=== PATIENT | female | born 1990 | race African-American/Black ===

== ENCOUNTER 2018-03-10 19:35 | Inpatient (IN) ==
[~2018-03-10 19:35] MED LIST: Lidocaine PF 1% Inj 5 ML Syringe INFILTRATN ONE; Phenylephrine/NS 1000 MCG/10ML Syringe IV.PUSH ONE; Succinylcholine Inj 100 MG/5 ML Syringe IV.PUSH ONE
[2018-03-10] MEDS ORDERED: Tetanus/Diphtheria Toxoid Adult Vaccine Inj 0.5 ML Vial IM ONE (20:38)
[2018-03-10] MEDS ORDERED: Sod Chloride 0.9% Inj 1,000 ML IV.SIG ONE (20:38)
[2018-03-10] MEDS ORDERED: Ampicillin/Sulbactam Inj 1,500 MG in Sodium Chloride 0.9% Inj 100 ML IV.SIG ONE (20:54)
[2018-03-10 21:05] LABS: Baso # (Auto) 0.1 th/mm3 (0.0-0.2); Baso % (Auto) 0.8 % (0.0-2.0); Eos % (Auto) 0.3 % (0.0-4.0); Hematocrit 41.4 % (35.0-46.0); Hemoglobin 13.8 gm/dL (11.6-15.3); Lymph # (Auto) 1.9 th/mm3 (1.0-4.8); Lymph % (Auto) 15.1 % (9.0-44.0); Mean Corpuscular HGB Conc 33.4 % (32.0-36.0); Mean Corpuscular Hemoglobin 31.4 pg (27.0-34.0); Mean Corpuscular Volume 93.9 fL (80.0-100.0); Mean Platelet Volume 9.3 fL (7.0-11.0); Mono # (Auto) 0.6 th/mm3 (0.0-0.9); Neut # (Auto) 9.7 th/mm3 (1.8-7.7); Neut % (Auto) 78.8 % (16.0-70.0); Platelet Count 236 th/mm3 (150-450); Red Blood Count 4.41 mil/mm3 (4.00-5.30); Red Cell Distribution Width 13.1 % (11.6-17.2); White Blood Count 12.3 th/mm3 (4.0-11.0)
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
--- NOTE | 2018-03-10 21:21 | XR ---
EXAM DATE: 03/10/2018 9:11 PM EDT AGE/SEX: 27 years / Female INDICATIONS: Presurgical. Evaluate for pneumonia or communicable disease. CLINICAL DATA: This is the patient's initial encounter. Patient reports that signs and symptoms have been present for 1 day and indicates a pain score of 0/10. MEDICAL/SURGICAL HISTORY: None. None. COMPARISON: No prior exams available for comparison. FINDINGS: No focal airspace disease or effusion. No pneumothorax. Heart size normal. CONCLUSION: No active disease. Electronically signed by: Albino Paige MD 03/10/2018 9:20 PM EDT
[2018-03-10 21:22] LABS: Calcium 9.2 mg/dL (8.5-10.1); Carbon Dioxide 25.7 meq/L (21.0-32.0); Potassium 3.2 meq/L (3.5-5.1)
--- NOTE | 2018-03-10 21:23 | XR ---
EXAM DATE: 03/10/2018 9:12 PM EDT AGE/SEX: 27 years / Female INDICATIONS: Pain in right foot. Dog bite. CLINICAL DATA: This is the patient's initial encounter. Patient reports that signs and symptoms have been present for 1 day and indicates a pain score of 10/10. MEDICAL/SURGICAL HISTORY: None. None. COMPARISON: No prior exams available for comparison. FINDINGS: There are fractures of the distal third metatarsal and proximal phalanx of the third toe as well as t he proximal phalanx of the second toe. Soft tissue lacerations are noted. Several tiny radiopaque den sities noted in the soft tissues. CONCLUSION: Displaced avulsion fracture distal third metatarsal and proximal phalanx of the third toe. Also fract ure proximal phalanx second toe with several small radiopaque densities in the soft tissues as well a s laceration. Electronically signed by: Albino Paige MD 03/10/2018 9:22 PM EDT
[2018-03-10 22:48] LABS: Activated Partial Thrombo Time 23.8 sec (24.3-30.1); INR 1.1 Ratio; Prothrombin Time 10.9 sec (9.8-11.6)
--- NOTE | 2018-03-10 23:05 | ECG ---
Date Performed: 03/10/2018 Time Performed: 20:52:04 PTAGE: 27 years EKG: Sinus rhythm WITH SINUS ARRHYTHMIA POSSIBLE RIGHT VENTRICULAR CONDUCTION DELAY BORDERLINE ECG NO PREVIOUS TRACING DOCTOR: Simon Lopez Interpretating Date/Time 03/10/2018 23:03:28
[2018-03-10] MEDS ORDERED: Bupivacaine PF 0.25% Inj 30 ML Vial ONE (23:07)
[2018-03-10] MEDS ORDERED: Morphine Sulfate Inj 2 MG/ML Vial IV.PUSH PRN (23:31)
[2018-03-10] MEDS ORDERED: Temazepam 15 MG Capsule PO PRN (23:31)
[2018-03-10] MEDS ORDERED: Bisacodyl 10 MG Supp RECTAL PRN (23:31)
[2018-03-10] MEDS ORDERED: Acetaminophen 325 MG Tablet PO PRN (23:31)
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
[2018-03-10] MEDS ORDERED: Clindamycin Inj 600 MG/4 ML Vial ONE (23:44)
[2018-03-11] MEDS ORDERED: Post-op Orders (for Pharmacy) OTHER STA (01:09)
--- NOTE | 2018-03-11 01:09 | P.PCN ---
Date of procedure: 03/11/18 Pre-op diagnosis: R open foot 3rd metatarsal head fracture, 3rd proximal phalanx fracture Post-op diagnosis: same Procedure: Right foot right foot open reduction internal fixation, K wire fixation of third metatarsal head fracture Laceration repair to dorsal and plantar foot, right foot Anesthesia: WILLIAMA Surgeon: Isi Savage Estimated blood loss (mL): 5 Pathology: other (Soft tissue status post lavage sent for micro, wound culture) Condition: stable Disposition: PACU
[2018-03-11] MEDS ORDERED: fentaNYL Citrate Inj 100 MCG/2 ML Ampul ONE (01:13)
[2018-03-11] MEDS ORDERED: *morphine SULFATE 4 MG/ML PERIprocedure ONLY ONE ×2 (01:14→01:36)
[2018-03-11] MEDS: Sod Chloride 0.9% Inj 1,000 ML IV.CONT SCH ×2 (01:40→14:46)
[2018-03-11] MEDS: Morphine Inj 4 MG/ML Vial IV.PUSH PRN ×6 (03:00→23:02)
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
[2018-03-11 07:41] LABS: Hematocrit 40.9 % (35.0-46.0); Hemoglobin 13.6 gm/dL (11.6-15.3); Mean Corpuscular HGB Conc 33.2 % (32.0-36.0); Mean Corpuscular Hemoglobin 31.4 pg (27.0-34.0); Mean Corpuscular Volume 94.5 fL (80.0-100.0); Mean Platelet Volume 9.6 fL (7.0-11.0); Platelet Count 214 th/mm3 (150-450); Red Blood Count 4.33 mil/mm3 (4.00-5.30); Red Cell Distribution Width 13.5 % (11.6-17.2); White Blood Count 20.7 th/mm3 (4.0-11.0)
[2018-03-11 08:15] LABS: Calcium 8.7 mg/dL (8.5-10.1); Carbon Dioxide 22.1 meq/L (21.0-32.0); Potassium 4.1 meq/L (3.5-5.1)
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
[2018-03-11] MEDS: Senna/Docusate Sodium 8.6/50 MG Tablet PO SCH ×2 (09:46→20:10)
[2018-03-11 10:24] LABS: Lymphocytes 8 % (9-44); Monocytes 7 % (0-8); Platelet Estimate Normal (Normal); Platelet Morphology Normal (Normal)
[2018-03-11] MEDS: Clindamycin 600 mg/NS Premix 600 MG/50 ML PIGGYBACK IV.SIG SCH ×2 (10:26→16:05)
--- NOTE | 2018-03-11 13:22 | P.PNPOD ---
Subjective Interval history: Patient seen bedside. Denies any N,V,F,Ch. States she would like to go home as soon as possible. Patient states her pain is well controlled although it is at about a 7. Review of Systems No: All other systems reviewed negative except as stated in HPI Physical Exam Vital signs: Vital Signs 03/10/18 19:55 03/10/18 22:25 03/11/18 01:07 Temperature 98.3 F 98.6 F Pulse Rate 70 72 104 H Respiratory Rate 20 15 20 Blood Pressure 100/69 110/71 123/63 Pulse Oximetry 100 99 97 03/11/18 01:15 03/11/18 01:30 03/11/18 01:45 Temperature Pulse Rate 89 68 56 L Respiratory Rate 22 12 15 Blood Pressure 158/73 H 134/60 122/72 Pulse Oximetry 100 03/11/18 02:00 03/11/18 02:33 03/11/18 02:50 Temperature 98.5 F 98.0 F Pulse Rate 59 L 54 L Respiratory Rate 23 16 20 Blood Pressure 124/74 129/70 Pulse Oximetry 97 96 03/11/18 03:59 03/11/18 04:38 03/11/18 08:00 Temperature 97.6 F 97.8 F Pulse Rate 54 L 53 L Respiratory Rate 20 16 18 Blood Pressure 119/59 L 156/80 H Pulse Oximetry 98 99 Intake & Output 03/10/18 03/11/18 03/11/18 18:59 06:59 18:59 Intake Total 200 / 200 460 / 460 Output Total 550 / 550 Balance -350 / -350 460 / 460 Weight 51 kg Intake: IV 100 / 100 Ancef Inj 1,000 MG In NS Inj 100 / 100 100 ML @ 200 mls/hr IV.SIG Q8H [facility] Rx#:[id number] Oral 360 / 360 Anesthesia Amount 200 / 200 Output: Urine 550 / 550 Other: # Voids 1 Narrative: Dressing to right foot clean, dry and intact. Active/passive DF/PF to digits of right foot. WOOD CRAFTSMAN to digits x5 right foot intact. NVS intact to right foot. Medications and Allergies Active Medications: Active Medications Acetaminophen (Tylenol) 650 mg PO Q4H PRN PRN Reason: Temp > 100.4 Al Hydroxide/Mg Hydroxide (Milk Of Magnesia Liq) 30 ml PO Q12H PRN PRN Reason: Mild Constipation Bisacodyl (Dulcolax Supp) 10 mg RECTAL DAILY PRN PRN Reason: SEVERE CONSITIPATION Sodium Chloride (Ns Inj) 1,000 mls @ 70 mls/hr IV.CONT .[id number] [facility] Last Admin: 03/11/18 01:40 Dose: 70 mls/hr Cefazolin Sodium 1,000 mg/ (Sodium Chloride) 100 mls @ 200 mls/hr IV.SIG Q8H [facility] Stop: 03/12/18 08:29 Last Infusion: 03/11/18 10:26 Dose: Infused Clindamycin/Sodium Chloride (Cleocin 600 Mg/Ns Premix) 600 mg in 50 mls @ 100 mls/hr IV.SIG Q8H [facility] Stop: 03/12/18 09:29 Last Admin: 03/11/18 10:26 Dose: 100 mls/hr Ampicillin Sodium/Sulbactam (Sodium 3 gm/ Sodium Chloride) 100 mls @ 200 mls/ hr IV.SIG Q6H [facility] Lactulose (Lactulose Liq) 30 ml PO DAILY PRN PRN Reason: SEVERE CONSITIPATION Morphine Sulfate (Morphine Inj) 2 mg IV.PUSH Q3H PRN PRN Reason: pain 6-10 Last Admin: 03/11/18 13:12 Dose: 2 mg Ondansetron HCl (Zofran Inj) 4 mg IV.PUSH Q6H PRN PRN Reason: NAUSEA OR VOMITING Potassium Chloride (K-Dur) 40 meq PO DAILY [facility] Last Admin: 03/11/18 09:45 Dose: 40 meq Senna/Docusate Sodium (Joyce-Colace) 1 tab PO BID [facility] Last Admin: 03/11/18 09:46 Dose: Not Given Sennosides (Senokot) 17.2 mg PO Q12H PRN PRN Reason: Moderate Constipation Sodium Chloride (Ns Flush) 2 ml IV.FLUSH BID [facility] Last Admin: 03/11/18 09:46 Dose: Not Given Sodium Chloride (Ns Flush) 2 ml IV.FLUSH PRN PRN PRN Reason: FLUSH AFTER USING IV ACCESS Temazepam (Restoril) 15 mg PO HS PRN PRN Reason: INSOMNIA Allergies Allergy/AdvReac Type Severity Reaction Status Date / Time No Known Allergies Allergy Uncoded 11/04/15 11:33 Home Medications Medication Instructions Recorded Confirmed Type No Known Home Medications 03/11/18 03/11/18 History Results - Labs CBC & Chem 7: 03/11/18 07:11 03/11/18 07:11 Laboratory Results - last 24 hr 03/10/18 03/10/18 03/10/18 20:55 20:55 22:10 WBC 12.3 H RBC 4.41 Hgb 13.8 Hct 41.4 MCV 93.9 MCH 31.4 MCHC 33.4 RDW 13.1 Plt Count 236 MPV 9.3 Prelim Diff (Auto) Neut % (Auto) 78.8 H Lymph % (Auto) 15.1 [place] % (Auto) 5.0 Eos % (Auto) 0.3 Baso % (Auto) 0.8 Neut # (Auto) 9.7 H Lymph # (Auto) 1.9 [place] # (Auto) 0.6 Eos # (Auto) 0.0 Baso # (Auto) 0.1 WBC Differential . Seg Neuts % (Manual) Band Neuts % (Manual) Lymphocytes % (Manual) Monocytes % (Manual) Abs Neuts (Manual) Differential Comment Auto diff final Platelet Estimate Platelet Morphology PT 10.9 INR 1.1 APTT 23.8 L Sodium 142 Potassium 3.2 L Chloride 109 H Carbon Dioxide 25.7 Anion Gap 7 BUN 7 Creatinine 1.02 H Estimated GFR 78 L Random Glucose 94 Calcium 9.2 Blood Type Antibody Screen 03/10/18 03/11/18 03/11/18 22:10 07:11 07:11 WBC 20.7 H D RBC 4.33 Hgb 13.6 Hct 40.9 MCV 94.5 MCH 31.4 MCHC 33.2 RDW 13.5 Plt Count 214 MPV 9.6 Prelim Diff (Auto) Manual diff required Neut % (Auto) Lymph % (Auto) [place] % (Auto) Eos % (Auto) Baso % (Auto) Neut # (Auto) Lymph # (Auto) [place] # (Auto) Eos # (Auto) Baso # (Auto) WBC Differential Manual diff final Seg Neuts % (Manual) 79 H Band Neuts % (Manual) 6 Lymphocytes % (Manual) 8 L Monocytes % (Manual) 7 Abs Neuts (Manual) 17.6 H Differential Comment . Platelet Estimate Normal Platelet Morphology Normal PT INR APTT Sodium 143 Potassium 4.1 D Chloride 112 H Carbon Dioxide 22.1 Anion Gap 9 BUN 6 L Creatinine 0.96 Estimated GFR 84 L Random Glucose 121 H Calcium 8.7 Blood Type O Positive Antibody Screen Negative Microbiology 03/10/18 20:55 Blood - Line Aerobic Blood Culture - Preliminary No growth in 1 day 03/10/18 20:55 Blood - Line Anaerobic Blood Culture - Preliminary No growth in 1 day - Imaging Impressions Foot X-Ray 03/10/18 20:42 CONCLUSION: Displaced avulsion fracture distal third metatarsal and proximal phalanx of the third toe. Also fracture proximal phalanx second toe with several small radiopaque densities in the soft tissues as well as laceration. Chest X-Ray 03/10/18 20:43 CONCLUSION: No active disease. Assessment and Plan - Plan 27-year-old female status post dog bite to right foot with associated proximal phalanx fractures of second and third digit with third metatarsal distal fracture Patient examined evaluated with all questions answered Posterior splint to be applied to RLE NWB to the RLE Patient is to follow up in office within 1 week of discharge Dressing to stay clean, dry and intact , Do not remove. Do not get wet. Patient ok to be DC from podiatry standpoint only after she has received 5 doses of IV abx therapy Please await final cultures for oral abx selection, consult infectious disease if necessary Discharge on oral antibiotics
--- NOTE | 2018-03-11 13:44 | XR ---
EXAM DATE: 03/11/2018 1:40 PM EDT AGE/SEX: 27 years / Female INDICATIONS: Post right foot pinning CLINICAL DATA: This is the patient's subsequent encounter. Patient reports that signs and symptoms h ave been present for 2 days and indicates a pain score of 0/10. MEDICAL/SURGICAL HISTORY: None. None. COMPARISON: [facility] [place] 3V, 03/10/2018. . FINDINGS: Postsurgical changes with pin traversing the base of the proximal phalanx of the third digit and thir d metatarsal head. Fractures are again seen involving the third metatarsal head and base of the proxi mal phalanx third toe. There is also fracture of the base of the proximal phalanx second toe CONCLUSION: Postsurgical changes with pin traversing the base of proximal phalanx third toe and distal third meta tarsal Electronically signed by: Ki Carvajal MD 03/11/2018 1:43 PM EDT
[2018-03-11] MEDS: Ampicillin/Sulbactam Inj 3 GM in Sodium Chloride 0.9% Inj 100 ML IV.SIG SCH ×2 (14:46→20:10)
[2018-03-12] MEDS: Morphine Inj 4 MG/ML Vial IV.PUSH PRN ×2 (02:11→05:51)
[2018-03-12] MEDS: Ampicillin/Sulbactam Inj 3 GM in Sodium Chloride 0.9% Inj 100 ML IV.SIG SCH ×2 (02:11→11:53)
[2018-03-12] MEDS: Clindamycin 600 mg/NS Premix 600 MG/50 ML PIGGYBACK IV.SIG SCH ×2 (02:17→10:09)
[2018-03-12] MEDS: Sod Chloride 0.9% Inj 1,000 ML IV.CONT SCH (05:52)
[2018-03-12] MEDS: Senna/Docusate Sodium 8.6/50 MG Tablet PO SCH (10:10)
--- NOTE | 2018-03-12 13:41 | P.PN ---
Subjective Interval history: PAIN IS CONTROLLED BY MEDS. NO FEVER OR CHILLS. NO N/V/D/C. WANTS TO GO HOME. Physical Exam Vital signs: Vital Signs 03/11/18 16:00 03/11/18 20:19 03/12/18 00:24 Temperature 98.6 F 98.8 F 98.6 F Pulse Rate 51 L 52 L 57 L Respiratory Rate 16 16 18 Blood Pressure 137/69 145/82 H 154/69 H Pulse Oximetry 100 97 97 03/12/18 08:00 Temperature Pulse Rate Respiratory Rate 17 Blood Pressure Pulse Oximetry Intake & Output 03/11/18 03/12/18 03/12/18 18:59 06:59 18:59 Intake Total 2494 / 2494 1110 / 1110 1350 / 1350 Balance 2494 / 2494 1110 / 1110 1350 / 1350 Weight 51 kg Intake: IV 1234 / 1234 350 / 350 1350 / 1350 NS Inj 1,000 ML @ 70 mls/hr IV. 834 / 834 CONT .[id number] [facility] Rx#:[id number] Unasyn Inj 3 GM In NS Inj 100 100 / 100 200 / 200 100 / 100 ML @ 200 mls/hr IV.SIG Q6H [facility] Rx#:[id number] Cleocin 600 mg/NS Premix 600 mg 100 / 100 50 / 50 50 / 50 In 50 ml @ 100 mls/hr IV.SIG Q8H [facility] Rx#:[id number] Ancef Inj 1,000 MG In NS Inj 200 / 200 100 / 100 100 / 100 100 ML @ 200 mls/hr IV.SIG Q8H [facility] Rx#:[id number] Oral 1260 / 1260 760 / 760 Other: # Voids 1 2 # Bowel Movements 1 Narrative: GENERAL: YOUNG F IN NAD CARDIOVASCULAR: Regular rate and rhythm without murmurs, gallops, or rubs. RESPIRATORY: Breath sounds equal bilaterally. No accessory muscle use. GASTROINTESTINAL: Abdomen soft, non-tender, nondistended. MUSCULOSKELETAL: Right leg with dressing on , neurovascular intact. No cyanosis , or edema. BACK: Nontender without obvious deformity. No CVA tenderness. Results - Labs CBC & Chem 7: 03/11/18 07:11 03/11/18 07:11 Microbiology 03/11/18 00:03 Wound - Foot Gram Stain - Final 03/11/18 00:03 Wound - Foot Wound Culture - Preliminary 03/10/18 07:11 Blood - Line Aerobic Blood Culture - Preliminary No growth in 1 day 03/10/18 07:11 Blood - Line Anaerobic Blood Culture - Preliminary No growth in 1 day 03/10/18 20:55 Blood - Line Aerobic Blood Culture - Preliminary No growth in 2 days 03/10/18 20:55 Blood - Line Anaerobic Blood Culture - Preliminary No growth in 2 days 03/11/18 00:30 Tissue - Foot Gram Stain - Final 03/11/18 00:30 Tissue - Foot Fungal Smear - Final No fungal elements seen 03/11/18 00:03 Wound - Foot Fungal Smear - Final No fungal elements seen - Imaging Impressions Foot X-Ray 03/11/18 13:23 CONCLUSION: Postsurgical changes with pin traversing the base of proximal phalanx third toe and distal third metatarsal Assessment and Plan - Plan Code Status: 27-year-old female status post dog bite to right foot with associated proximal phalanx fractures of second and third digit with third metatarsal distal fracture Posterior splint to be applied to RLE by Dr Ingram Podiatry NWB to the RLE Patient is to follow up in office within 1 week of discharge with Dr Ingram Dressing to stay clean, dry and intact , Do not remove. Do not get wet. Patient ok to be DC from podiatry standpoint only after she has received 5 doses of IV abx therapy Please await final cultures for oral abx selection. Cx are NTD Discharge on oral antibiotics Discussed with the patient,nurse DC home in stable condition to follow up as OP with PCP and consultants as OP
--- NOTE | 2018-03-12 13:55 | P.DS ---
Date of admission: 03/11/18 14:50 Primary care physician: No Primary Care Physician Brief History from admission: 27-year-old female with no significant past medical history was brought to the emergency department for the evaluation of a right foot injury. The patient was reportedly fleeing from police when a police dog bit her on her right foot causing a right open foot 3rd metatarsal head fracture and 3rd proximal phalanx fracture. The patient complains of pain in her right foot but denies all other complaints at this time. DS: Diagnosis - Discharge Diagnosis (1) Dog bite Status: Acute (2) Fx phalanx, foot-open Status: Acute DS: Medications - Discharge Medications Prescriptions: ibuprofen 400 mg PO Q4-6H PRN #20 cap PRN Reason: Pain sulfamethoxazole-trimethoprim [Bactrim DS] 1 tab PO BID #20 tab DS: Summary Hospital Course: 27-year-old female status post dog bite to right foot with associated proximal phalanx fractures of second and third digit with third metatarsal distal fracture Posterior splint to be applied to RLE by Dr Ingram Podiatry NWB to the RLE Patient is to follow up in office within 1 week of discharge with Dr Ingram Dressing to stay clean, dry and intact , Do not remove. Do not get wet. Patient ok to be DC from podiatry standpoint only after she has received 5 doses of IV abx therapy Please await final cultures for oral abx selection. Cx are NTD Discharge on oral antibiotics Discussed with the patient,nurse DC home in stable condition to follow up as OP with PCP and consultants as OP - Time Spent with Patient Total time spent providing and/or coordinating discharge services: Greater than 30 minutes - Quality: VTE Deep Vein Thrombosis/Pulmonary Embolism Present on Admission: No Exam Vital signs: Vital Signs 03/11/18 16:00 03/11/18 20:19 03/12/18 00:24 Temperature 98.6 F 98.8 F 98.6 F Pulse Rate 51 L 52 L 57 L Respiratory Rate 16 16 18 Blood Pressure 137/69 145/82 H 154/69 H Pulse Oximetry 100 97 97 03/12/18 08:00 Temperature Pulse Rate Respiratory Rate 17 Blood Pressure Pulse Oximetry Intake & Output 03/11/18 03/12/18 03/12/18 18:59 06:59 18:59 Intake Total 2494 / 2494 1110 / 1110 1350 / 1350 Balance 2494 / 2494 1110 / 1110 1350 / 1350 Weight 51 kg Intake: IV 1234 / 1234 350 / 350 1350 / 1350 NS Inj 1,000 ML @ 70 mls/hr IV. 834 / 834 CONT .[id number] KODI Rx#:[id number] Unasyn Inj 3 GM In NS Inj 100 100 / 100 200 / 200 100 / 100 ML @ 200 mls/hr IV.SIG Q6H KODI Rx#:[id number] Cleocin 600 mg/NS Premix 600 mg 100 / 100 50 / 50 50 / 50 In 50 ml @ 100 mls/hr IV.SIG Q8H KODI Rx#:[id number] Ancef Inj 1,000 MG In NS Inj 200 / 200 100 / 100 100 / 100 100 ML @ 200 mls/hr IV.SIG Q8H KODI Rx#:[id number] Oral 1260 / 1260 760 / 760 Other: # Voids 1 2 # Bowel Movements 1 Narrative: GENERAL: Young f F in nad. CARDIOVASCULAR: Regular rate and rhythm without murmurs, gallops, or rubs. RESPIRATORY: Breath sounds equal bilaterally. No accessory muscle use. GASTROINTESTINAL: Abdomen soft, non-tender, nondistended. MUSCULOSKELETAL: Splint in place, neurovascular intact. No cyanosis, or edema. BACK: Nontender without obvious deformity. No CVA tenderness. Results Procedures completed during hospitalization: right leg spint by dr Hussein Sabillon on day of discharge: Preliminary micro results at discharge 03/11/18 00:03 Wound Culture - Preliminary Wound - Foot 03/10/18 07:11 Aerobic Blood Culture - Preliminary Blood - Line No growth in 1 day Anaerobic Blood Culture - Preliminary No growth in 1 day 03/10/18 20:55 Aerobic Blood Culture - Preliminary Blood - Line No growth in 2 days Anaerobic Blood Culture - Preliminary No growth in 2 days - Impressions ITS Impressions Chest X-Ray 03/10/18 20:43 CONCLUSION: No active disease. Foot X-Ray 03/11/18 13:23 CONCLUSION: Postsurgical changes with pin traversing the base of proximal phalanx third toe and distal third metatarsal Discharge Plan - Discharge Disposition Patient Disposition: 01 Discharge Home - Discharge Condition Condition: Stable - Discharge Order Discharge Orders: Discharge Order (Routine); Ordered 07/09/18 Ordered By: Carla Martínez - Discharge Details Anticipated Discharge Date: 03/12/18 - Physicians Team Primary Care Provider: Primary Care Artur,Brittany Attending Provider: Carla Martínez Other Providers: Isi Ingram DPM
[2018-03-12] MEDS ORDERED: Ampicillin/Sulbactam Inj 3 GM in Sodium Chloride 0.9% Inj 100 ML IV.SIG SCH (17:00)
[2018-03-12] MEDS ORDERED: Enoxaparin Inj 40 MG/0.4 ML Syringe SQ SCH (17:00)
[2018-03-13] MEDS ORDERED: Enoxaparin Inj 40 MG/0.4 ML Syringe SQ SCH (15:35)
== END 2018-03-12 17:31 | disposition home or self-care (01) ==
LOC: NEPD 19:35 → NEDA 19:35 → N07 03-11 02:24
PROVIDERS: ADMIT Hospitalist; ATTEND Hospitalist